=== PATIENT | male | born 1970 | race Caucasian/White ===

== ENCOUNTER → 2024-09-23 11:58 | Outpatient (CLI) | payer OTHER, SELFPAY ==
--- NOTE | 2024-09-23 | DI.CT.S_ITS ---
PROCEDURE: CT IVP A/P W/WO INDICATIONS: Other microscopic hematuria TECHNIQUE: Optional 5 mm thick noncontrast images acquired from the diaphragm to the symphysis pubis. After the administration of intravenous contrast, 5 mm thick images acquired from the diaphragm to the symphysis pubis after a 10-minute delay. 2 mm thick coronal and sagittal reformats were then performed of the kidneys and ureters. For radiation dose reduction, the following was used: automated exposure control, adjustment of mA and/or kV according to patient size. COMPARISON: None. FINDINGS: Image quality: Diagnostic Lower chest: Basal atelectasis. Normal heart size Liver: Unremarkable Gallbladder and biliary system: Unremarkable, nondilated Pancreas: No ductal dilation Spleen: Nonenlarged Adrenals: No discrete nodules Kidneys: No solid mass. No hydronephrosis. No suspicious ureter filling defect. No calcified stones on noncontrast imaging. Punctate lesion in the left lower pole is too small to characterize, usually a cyst. Vessels and lymph nodes: No abdominal aortic aneurysm. The main portal vein is patent. No pathologic lymph nodes by size criteria. Bowel and peritoneum: No small bowel obstruction. No pathologic ascites. There are colonic diverticula. Normal appendix. Body wall: Tiny fat containing umbilical hernia Pelvis: Prostatomegaly, not well assessed otherwise on CT. Bladder is unremarkable on limited CT evaluation Bones: Right hip arthroplasty with surrounding metallic artifact. There are degenerative changes of the lumbosacral region. IMPRESSION: No solid renal mass. No calcified stone identified. No hydronephrosis or suspicious ureter findings In the setting of hematuria, the lower tracts could be better evaluated with cystoscopy. Prostatomegaly not well evaluated on CT. Other findings above. Dictated by: Stu Gutierres M.D. on 09/23/2024 at 15:18 Approved by: Stu Gutierres M.D. on 09/23/2024 at 15:22
[2024-09-23 13:16] LABS: Estimated Glomerular Filt Rate > 60 mL/min (>60)
== END ==
PROVIDERS: Radiology Diagnostic Radiology; Referring Provider Physician Assistant Medical; Visit Provider Physician Assistant Medical
DX: R31.29 Other microscopic hematuria (principal); R31.9 Hematuria, unspecified; J98.11 Atelectasis; N40.0 Benign prostatic hyperplasia without lower urinary tract symptoms; K42.9 Umbilical hernia without obstruction or gangrene; Z96.641 Presence of right artificial hip joint
CPT/HCPCS: 36415; 74178; 82565; Q9967